=== PATIENT | female | born 1950 | race Caucasian/White ===

== ENCOUNTER 2024-02-05 10:04 | Emergency (ER) | payer OTHER ==
[~2024-02-05] VITALS: Ht 154.9 cm; Wt 67.6 kg
[2024-02-05 10:46] VITALS: TEMP 98.4
[2024-02-05] MEDS ORDERED: HYDROCODONE/APAP 5/325MG TABLET ONE (13:41)
[2024-02-05] MEDS: HYDROCODONE/APAP 5/325MG TABLET PO ONE (13:44)
[2024-02-05] MEDS ORDERED: IBUP-1953 PO (13:54)
[2024-02-05 14:18] VITALS: BP 148/82; O2SAT 95
== END 2024-02-05 14:19 | disposition home or self-care (01) ==
LOC: ER 10:56
DX: S83.92XA Sprain of unspecified site of left knee, initial encounter (principal); I10 Essential (primary) hypertension; X50.1XXA Overexertion from prolonged static or awkward postures, initial encounter; Y93.89 Activity, other specified; Y92.89 Other specified places as the place of occurrence of the external cause; Y99.8 Other external cause status
CPT/HCPCS: 73562